=== PATIENT | male | born 1980 ===

== ENCOUNTER 2017-02-19 19:36 | Emergency (ER) | payer SELFPAY ==
[2017-02-19] MEDS ORDERED: Sodium Chloride 0.9% 1,000 ML IV STA ×2 (19:55→21:05)
--- NOTE | 2017-02-19 19:59 | C.PDOC ---
History Of Present Illness Zach Riojas is a 36 year old male, with no past medical history, who presents to the emergency department complaining of fever, body aches, general weakness, midabdominal crampy intermittent abdominal pain and loose nonbloody stools x 5 episodes. He denies any vomiting, dysuria, cough, or recent travels. PMD: None. Time Seen by Provider: 02/19/17 19:49 Chief Complaint (Nursing): Abdominal Pain History/Exam Limitations: no limitations Onset/Duration Of Symptoms: Days (x1), Intermittent Episodes Current Symptoms Are (Timing): Still Present Past Medical History Reviewed: Historical Data, Nursing Documentation, Vital Signs Vital Signs: Last Vital Signs Temp 98.9 F 02/19/17 22:35 Pulse 88 02/19/17 22:35 Resp 18 02/19/17 22:35 BP 118/57 L 02/19/17 22:35 Pulse Ox 97 02/19/17 22:35 Family History: States: Unknown Family Hx - Social History Hx Tobacco Use: No Hx Alcohol Use: No Hx Substance Use: No Review Of Systems Except As Marked, All Systems Reviewed And Found Negative. Constitutional: Positive for: Fever Respiratory: Negative for: Cough Gastrointestinal: Positive for: Abdominal Pain, Diarrhea. Negative for: Vomiting Physical Exam - Physical Exam Additional Physical Exam Comments: Constitutional: No acute distress. Head: Normocephalic. Atraumatic. Eyes: PERRL. ENT: Moist mucous membranes. Neck: Supple. No nuchal rigitidy. Cardiovascular: Tachycardic . Radial pulse 2+ bilaterally. Chest: No tenderness. Respiratory: Clear to auscultation bilaterally. GI: Mid abdominal tenderness without rebound or guarding. No RUQ or RLQ tenderness. Nondistended. Back: No CVA tenderness. Musculoskeletal: No tenderness or swelling of extremities. Skin: No rash. Neurologic: Alert, no focal deficit. ED Course And Treatment - Laboratory Results Result Diagrams: 02/19/17 20:03 02/19/17 20:03 O2 Sat by Pulse Oximetry: 97 (RA) Pulse Ox Interpretation: Normal Medical Decision Making Medical Decision Making: Initial Plan: --Comp Metabolic Panel --Lipase --CBC w/ differential --Ches two views (PA/LAT) [RAD] --Tylenol 650 mg PO --Toradol 30 mg IVP --Zofran Inj 8 mg IVP --NS IV 1,000 ml @ 1,000 mls/hr --Urine culture --Urinalysis --reevaluation Patient states he feels better at reassessment. No leukocytosis. Vital signs normal at discharge. CXR shows no infiltrate or consolidation. Lactate negative. Discharged home, continue PO fluids, antipyretics, analgesics, and Levofloxacin. Instructed to return to ED immediately for worsening dyspnea, pain , vomiting, or if abdominal pain moves to RLQ. Scribe Attestation Written by Umesh Warner acting as a scribe for Cameron Coates MD All medical record entries made by the Scribe were at my direction and personally dictated by me. I have reviewed the chart and agree that the record accurately reflects my personal performance of the history, physical exam, medical decision making, and the department course for this patient. I have also personally directed, reviewed, and agree with the discharge instructions and disposition. Disposition - Disposition Referrals: [facility] [Outside] Disposition: HOME/ ROUTINE Disposition Time: 22:22 Condition: STABLE Prescriptions: Acetaminophen [Tylenol 325mg tab] 2 tab PO Q4H #30 tab Ibuprofen [Motrin] 600 mg PO Q6 #25 tab levoFLOXacin [Levaquin] 1 tab PO DAILY #10 tab Ondansetron ODT [Zofran ODT] 4 mg PO Q8 #12 odt Instructions: Viral Syndrome (ED) Forms: [facility] (Greenlandic) - Clinical Impression Clinical Impression: Flu-like symptoms
[2017-02-19] MEDS ORDERED: Sodium Chloride 0.9% 1,000 ML ONE ×2 (20:04→21:12)
[2017-02-19 20:08] LABS: BASO % 0.2 % (0.0-2.0); EOS # 0.1 K/uL (0.0-0.7); EOS % 0.6 % (0.0-4.0); HEMATOCRIT 43.1 % (35.0-51.0); LYMPH # 0.6 K/uL (1.0-4.3); LYMPH % 5.5 % (20.0-40.0); MEAN CELL VOLUME 94.6 fL (80.0-94.0); MEAN CORPUSCULAR HEMOGLOBIN 33.2 pg (27.0-31.0); MEAN CORPUSCULAR HGB CONC 35.1 g/dL (33.0-37.0); MEAN PLATELET VOLUME 8.1 fL (7.2-11.7); MONO # 0.6 K/uL (0.0-0.8); MONO % 5.5 % (0.0-10.0); PLATELET COUNT 215 K/uL (130-400); RED CELL DISTRIBUTION WIDTH 11.9 % (11.5-14.5); WHITE BLOOD COUNT 10.4 K/uL (4.8-10.8)
[2017-02-19 20:13] LABS: CHLORIDE 97 mmol/L (98-107)
[2017-02-19 20:14] LABS: POTASSIUM 3.3 mmol/L (3.6-5.2); SODIUM 136 mmol/L (132-148)
[2017-02-19 20:16] LABS: ALB/GLOB RATIO 1.2 (1.0-2.1); ALKALINE PHOSPHATASE 73 U/L (38-126); ALT/SGPT 41 U/L (21-72); AST/SGOT 26 U/L (17-59); BILIRUBIN,TOTAL 1.7 mg/dL (0.2-1.3); BLOOD UREA NITROGEN 15 mg/dL (9-20); CARBON DIOXIDE 25 mmol/L (22-30); GFR AFRICAN-AMERICAN > 60; GLUCOSE,RANDOM 111 mg/dL (75-110); TOTAL PROTEIN 7.8 g/dL (6.3-8.3)
[2017-02-19 20:17] LABS: CALCIUM 9.1 mg/dl (8.6-10.4)
[2017-02-19 20:44] LABS: RBC URINE 1 /hpf (0-3); URINE BACTERIA RARE (<OCC); URINE BILIRUBIN NEGATIVE (NEGATIVE); URINE BLOOD NEGATIVE (NEGATIVE); URINE COLOR Yellow (YELLOW); URINE GLUCOSE (UA) NORMAL (Normal); URINE KETONE TRACE mg/dL (NEGATIVE); URINE LEUKOCYTE ESTERASE NEG Leu/uL (Negative); URINE PROTEIN NEGATIVE (NEGATIVE); URINE UROBILINOGEN NORMAL mg/dL (0.2-1.0); WBC URINE 1 /hpf (0-5)
[2017-02-19 21:04] LABS: BASOPHIL 1 % (0-2); NEUTROPHIL 77 % (50-75); TOTAL CELLS COUNTED 100
[2017-02-19 21:31] VITALS: RESP 18
[2017-02-19 21:35] LABS: VENOUS BLOOD GAS BASE EXCESS -1.6 mmol/L (0.0-2.0); VENOUS BLOOD GAS PCO2 32 mmHg (40-60); VENOUS BLOOD PH 7.44 (7.32-7.43)
[2017-02-19 22:23] VITALS: O2SAT 97
[2017-02-19 22:37] VITALS: BP 118/57; PULSE 88; TEMP 98.9
--- NOTE | 2017-02-20 08:27 | RAD ---
HISTORY: fever COMPARISON: No prior. TECHNIQUE: Chest PA and lateral FINDINGS: LUNGS: No focal infiltrate or effusion. Mild diffuse increased interstitial lung markings. Mild right hilar prominence. PLEURA: No significant pleural effusion identified. No pneumothorax apparent. CARDIOVASCULAR: Normal. OSSEOUS STRUCTURES: No significant abnormalities. VISUALIZED UPPER ABDOMEN: Normal. OTHER FINDINGS: None. IMPRESSION: No focal infiltrate or effusion. Mild diffuse increased interstitial lung markings. Mild right hilar prominence.
== END 2017-02-19 22:54 | disposition home or self-care (01) ==
LOC: C.ER 19:36
DX: J11.1 Influenza due to unidentified influenza virus with other respiratory manifestations (principal)
CPT/HCPCS: 71020; 80053; 81001; 82803; 83690; 85025; 87086; 96361; 96374; 96375; 99285; J1885; J2405; J7040